=== PATIENT | male | born 1995 | race Caucasian/White ===

== ENCOUNTER 2019-08-15 16:06 | Emergency (ER) | payer SELFPAY ==
[~2019-08-15] VITALS: Ht 167 cm; Wt 71.7 kg
[~2019-08-15 16:06] MED LIST: Flexeril PO
[2019-08-15 16:45] VITALS: BP 126/81
[2019-08-15] MEDS ORDERED: PERM60CR4 TP (17:04)
--- NOTE | 2019-08-15 17:04 | ED Integumentary General ---
General Stated Complaint: RASH Source: patient Exam Limitations: no limitations History of Present Illness Date Seen by Provider: Aug 15, 2019 Time Seen by Provider: 17:02 Initial Comments 24 year old male for rash on his left outer thigh for the past week. Reports that mother was treated for scabies recently. His sister is her for similar rash. Allergies and Home Medications Allergies Coded Allergies: Penicillins (Unverified Allergy, Severe, ANAPHYLAXIS, 04/10/10) Home Medications Permethrin 60 Gm Cream..g., 60 GM TP ONCE Prescribed by: FELI YAO on 08/15/19 1704 [Flexeril] , 5 MG PO BID PRN for PAIN Prescribed by: BK URIAS on 02/08/15 1444 Patient Home Medication List Home Medication List Reviewed: Yes Review of Systems Review of Systems Constitutional: see HPI; No chills, No fever Skin: see HPI, pruritus, rash Past [id number]-Oweuvc-Eaxbeq Hx Past Med/Social Hx: Reviewed Nursing Past Med/Soc Hx Patient Social History Recent Foreign Travel: No Contact w/Someone Who Travel: No Immunizations Up To Date Tetanus Booster (TDap): Unknown Seasonal Allergies Seasonal Allergies: No Past Medical History Reproductive Disorders: No Sexually Transmitted Disease: No HIV/AIDS: No Family Medical History Reviewed Nursing Family Hx No Pertinent Family Hx Physical Exam Vital Signs Vital Signs - First Documented 08/15/19 16:45 Temp 36.9 Pulse 79 Resp 18 B/P (MAP) 126/81 (96) Pulse Ox 97 O2 Delivery Room Air Capillary Refill : General Appearance: WD/WN, no apparent distress Cardiovascular: normal peripheral pulses, regular rate, rhythm, no edema, no gallop, no JVD, no murmur Respiratory: chest non-tender, lungs clear, normal breath sounds, no respiratory distress, no accessory muscle use Neurologic/Psychiatric: alert, normal mood/affect, oriented x 3 Skin: normal color, warm/dry Skin Problem Location: lower extremities (outer thigh.) Skin Problem Character: other (linear tunnling that is consistant with scabies rash. ) Progress/Results/Core Measures Results/Orders Vital Signs/I&O 08/15/19 16:45 Temp 36.9 Pulse 79 Resp 18 B/P (MAP) 126/81 (96) Pulse Ox 97 O2 Delivery Room Air Departure Impression Primary Impression: Scabies Disposition: 01 HOME, SELF-CARE Condition: Stable/Unchanged Departure-Patient Inst. Decision time for Depature: 17:03 Referrals: [facility] (PCP/Family) Primary Care Physician Patient Instructions: Scabies Add. Discharge Instructions: Use medication as directed. Follow-up with primary care provider within 1 week for recheck. Return back to the emergency room for worsening symptoms or concerns as needed. Scripts Permethrin (Permethrin) 60 Gm Cream..g. 60 GM TP ONCE for 1 Day, #1 TUBE Prov: FELI YAO 08/15/19 FELI YAO Aug 15, 2019 17:04
--- OUTSIDE RECORDS SUMMARY | 2019-08-15 18:01 | XMS REPORT | Continuity of Care Document ---
Author Author [facility] Organization [facility] Address Unknown Phone Unavailable Care Team Providers Care Infant Nanny Name Role Phone TAYO ALMEIDA DO PP Insurance Providers Payer Name Policy Number [facility]scriber [facility] [id number] Dioni Dorantes 01 Self / Same As Patient Advance Directives Directive Response Recor ded Date Advance Directives N 11:46am Organ Donor N 01/12/13 1 1:46am Problems No Known Problems or Medical conditions. Social History History Response Recorde d Date/Time Alcohol Use Denies Use 1 11:46am Recreational Drug Use N 01/12/13 11:46am Recent Foreign Travel N 01/12/13 11:46am Sexually Transmitted Disease N 11/29/12 11:55pm HIV/AIDS N 11/29/12 11:5 5pm Allergies, Adverse Reactions, Alerts Allergen Type Severity Reaction Last Updated Penicillins Allergy Betina re ANAPHYLAXIS 04/10/10 Medications Medication Dose Units Route Sig Qty Days No Active Prescriptions or Reported Medications Response Recorded Date/Time Status not known Unknown Results No Known Relevant Diagnostic Tests, Laboratory Data and/or Discharge Summary. Encounters Encounter Location Date/ Time Departed Emergency Room [facility] [place] 01/12/13 11:36am
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
--- OUTSIDE RECORDS SUMMARY | 2019-08-15 18:01 | XMS REPORT ---
Author Author Arie Pena Organization [facility] Address [address] [place] [address] Care Team Providers Care Wire Machine Operator Name Role Phone PARMINDER Pena Unavailable PROBLEMS Type Condition ICD9-CM Code CBY29-TD Code Onset Dates Condition S tatus SNOMED Code Problem Primary insomnia F51.01 Active 397 2004 Problem Panic disorder [episodic paroxysmal anxiety] F41.0 Active [id number] ALLERGIES No Information ENCOUNTERS Encounter Location Date Diagnosis [place] [address] [address] Mar, Primary insomnia F51.01 [place] [address] [address] Feb, Panic disorder [episodic par oxysmal anxiety] F41.0 and Primary insomnia F51.01 [place] [address] [address] Dec, Panic disorder [episodic par oxysmal anxiety] F41.0 and Frequent headaches R51 [place] [address] [place] [id number] [address] [place] [address] Sep, Frequent headaches R51 [place] [address] [place] [id number] [address] [place] [address] Jun, At risk for cardiac complica tion Z91.89 [place] [address] [place] [id number] [address] [place] [address] Jun, Frequent headaches R51 ; Magalys ananda insomnia F51.01 and Status post cardiac surgery Z98.890 [place] [address] [place] [id number] [address] [place] [address] Jun, Frequent headaches R51 ; Maglays ananda insomnia F51.01 and Status post cardiac surgery Z98.890 [facility] [address] [facility] [id number] [address] [place] [address] Jun, Sinus pressure J34.89 ; Coug h R05 and Post-nasal discharge R09.82 [facility] [address] [facility] [id number] [address] [place] [phone] July, [facility] [address] [place] [id number] [address] [place] [address] Dec, [facility] [address] [facility] [id number] [address] [place] [id number] Nov, Dental examination V72.2 [facility] [address] [place] [address] Nov, Routine child health exam V2 0.2 ; GARDASIL (HPV) DX V04.89 ; HEP A (PED/ADOL 2-DOSE) DX V05.3 ; MENINGOCOCCAL DX V03.89 ; Dietary counseling and surveillance V65.3 ; Exercise counseling V65.41 ; Failed vision screen 796.4 and Right-sided chest wall pain 786.52 [facility] [address] [place] [id number] [address] [place] [address] Jun, [facility] [address] [place] [id number] [address] [place] [address] Jun, [facility] [address] [place] [id number] [address] [place] [address] Mar, [facility] [address] [place] [id number] [address] [place] [address] Mar, [facility] [address] [place] [id number] [address] [place] [phone] Feb, [facility] [address] [place] [id number] [address] [place] [address] Feb, [facility] [address] [place] [id number] [address] [place] [address] Feb, [facility] [address] [id number] [address] [place] [phone] Feb, [facility] [address] [id number] [address] [place] [phone] Feb, [facility] [address] [id number] [address] [place] [phone] Feb, [facility] [address] [id number] [address] [place] [phone] Jan, [facility] [address] [id number] [address] [place] [phone] Jan, [facility] [address] [id number] [address] [place] [phone] Jan, [facility] [address] [id number] [address] [place] [phone] Jan, [facility] [address] [id number] [address] [place] [phone] Dec, [facility] [address] [id number] [address] [place] [address] Dec, IMMUNIZATIONS No Known Immunizations SOCIAL HISTORY Never Assessed REASON FOR VISIT PLAN OF CARE VITAL SIGNS MEDICATIONS Unknown Medications RESULTS No Results PROCEDURES No Known procedures INSTRUCTIONS MEDICATIONS ADMINISTERED No Known Medications MEDICAL (GENERAL) HISTORY Type Description Date Surgical History holes in heart repaired (4) 1999 Hospitalization History stayed in hosp due to surgery 1998-
--- OUTSIDE RECORDS SUMMARY | 2019-08-15 18:01 | XMS REPORT ---
Author Author Arie REDDY Organization [facility] Address [address] [place] [address] Care Team Providers Care Sawmill Hand Name Role Phone BARRY LETITIA Unavailable PROBLEMS Type Condition ICD9-CM Code QUN97-LF Code Onset Dates Condition S tatus SNOMED Code Problem Primary insomnia F51.01 Active 397 2004 Problem Panic disorder [episodic paroxysmal anxiety] F41.0 Active [id number] ALLERGIES No Information ENCOUNTERS Encounter Location Date Diagnosis [place] [address] [address] Mar, Primary insomnia F51.01 [place] [address] [address] Feb, Panic disorder [episodic paroxysmal anxi ety] F41.0 and Primary insomnia F51.01 [place] [address] [address] Dec, Panic disorder [episodic paroxysmal anxi ety] F41.0 and Frequent headaches R51 [place] [address] [address] Sep, Frequent headaches R51 [place] [address] [address] Jun, At risk for cardiac complication Z91.89 [place] [address] [address] Jun, Frequent headaches R51 ; Primary insomni a F51.01 and Status post cardiac surgery Z98.890 [place] [address] [address] Jun, Frequent headaches R51 ; Primary insomni a F51.01 and Status post cardiac surgery Z98.890 [facility] [address] [facility] [id number] [address] [place] [address] Jun, Sinus pressure J34.89 ; Coug h R05 and Post-nasal discharge R09.82 [facility] [address] [place] [id number] [place] [address] July, [facility] [address] [place] [id number] [place] [address] Dec, [facility] [address] [id number] [place] [id number] Nov, Dental examination V72.2 [facility] [address] [place] [id number] [place] [address] Nov, Routine child health exam V20.2 ; GARDAS IL (HPV) DX V04.89 ; HEP A (PED/ADOL 2-DOSE) DX V05.3 ; MENINGOCOCCAL DX V03.89 ; Dietary counseling and surveillance V65.3 ; Exercise counseling V65.41 ; Failed vision screen 796.4 and Right-sided chest wall pain 786.52 [place] [address] [place] [id number] [place] [address] 14 Jun, 2014 [facility] [address] [address] Jun, [facility] [address] [address] 08 Mar, 2013 [facility] [address] [address] Mar, [facility] [address] [address] Feb, [facility] [address] [address] Feb, [facility] [address] [address] Feb, [facility] [address] [address] Feb, [facility] [address] [place] [id number] [place] [address] Feb, [facility] [address] [id number] [place] [address] Feb, [facility] [address] [place] [id number] [place] [address] Jan, [facility] [address] [place] [id number] [place] [address] Jan, [facility] [address] [place] [id number] [place] [address] Jan, [facility] [address] [place] [id number] [place] [address] Jan, [facility] [address] [id number] [place] [address] Dec, [facility] [address] [id number] [place] [address] Dec, IMMUNIZATIONS No Known Immunizations SOCIAL HISTORY Never Assessed REASON FOR VISIT PLAN OF CARE VITAL SIGNS MEDICATIONS Unknown Medications RESULTS No Results PROCEDURES No Known procedures INSTRUCTIONS MEDICATIONS ADMINISTERED No Known Medications MEDICAL (GENERAL) HISTORY Type Description Date Surgical History holes in heart repaired (4) 1999 Hospitalization History stayed in hosp due to surgery 1998-
--- OUTSIDE RECORDS SUMMARY | 2019-08-15 18:01 | XMS REPORT ---
Author Author Rose Lopezew Doctor Organization [facility] Address Unknown Phone Unavailable Care Team Providers Care Maintenance Services Dispatcher Name Role Phone Migration, Doctor Unavailable Unavailable PROBLEMS Type Condition ICD9-CM Code CAS51-FP Code Onset Dates Condition S tatus SNOMED Code Problem Attention deficit disorder o f childhood without mention of hyperactivity 314.00 Active 76499898 Problem Unspecified episodic mood disorder 296.90 Active 137805534 Problem Primary insomnia F51.01 Active 397 2004 Problem Depressive disorder, not elsewhere classified 311 Active 76932883 Problem Social phobia 300.23 Active 432292 02 Problem Agoraphobia with panic disorder 300.21 Active 25721078 Problem Panic disorder without agoraphobia 300.01 Active [id number] ALLERGIES No Information ENCOUNTERS Encounter Location Date Diagnosis [facility] [address] [address] Jun, At risk for cardiac complica tion Z91.89 [facility] [address] [address] Jun, Frequent headaches R51 ; Magalys ananda insomnia F51.01 and Status post cardiac surgery Z98.890 [facility] [address] [place] [id number] [address] [place] [address] Jun, Frequent headaches R51 ; Magalys ananda insomnia F51.01 and Status post cardiac surgery Z98.890 [facility] [address] [facility] [id number] [address] [place] [address] Jun, Sinus pressure J34.89 ; Coug h R05 and Post-nasal discharge R09.82 [facility] [address] [place] [id number] [address] [place] [address] July, [facility] [address] [place] [id number] [address] [place] [address] Dec, [facility] [address] [id number] [address] [place] [id number] 29 Nov, 2014 Dental examination V72.2 [facility] [address] [id number] [address] [place] [address] Nov, Routine child health exam V2 0.2 ; GARDASIL (HPV) DX V04.89 ; HEP A (PED/ADOL 2-DOSE) DX V05.3 ; MENINGOCOCCAL DX V03.89 ; Dietary counseling and surveillance V65.3 ; Exercise counseling V65.41 ; Failed vision screen 796.4 and Right-sided chest wall pain 786.52 [facility] [address] [id number] [address] [place] [address] Jun, [facility] [address] [id number] [address] [place] [address] Jun, [facility] [address] [id number] [address] [place] [address] Mar, [facility] [address] [id number] [address] [place] [address] Mar, [facility] [address] [id number] [address] [place] [address] Feb, [facility] [address] [id number] [address] [place] [address] Feb, [facility] [address] [id number] [address] [place] [address] Feb, [facility] [address] [id number] [address] [place] [address] Feb, [facility] [address] [id number] [address] [place] [address] Feb, [facility] [address] [id number] [address] [place] [address] Feb, [facility] [address] [id number] [address] [place] [address] Jan, [facility] [address] [facility] [id number] [address] [place] [address] Jan, [facility] [address] [facility] [id number] [address] [place] [address] Jan, [facility] [address] [facility] [id number] [address] [place] [address] Jan, [facility] [address] [facility] [id number] [address] [place] [address] Dec, [facility] [address] [facility] [id number] [address] [place] [address] Dec, IMMUNIZATIONS No Known Immunizations SOCIAL HISTORY Never Assessed REASON FOR VISIT [facility] PLAN OF CARE VITAL SIGNS MEDICATIONS Unknown Medications RESULTS No Results PROCEDURES No Known procedures INSTRUCTIONS MEDICATIONS ADMINISTERED No Known Medications MEDICAL (GENERAL) HISTORY Type Description Date Surgical History holes in heart repaired (4) 1999 Hospitalization History stayed in hosp due to surgery 1998- 000
--- OUTSIDE RECORDS SUMMARY | 2019-08-15 18:01 | XMS REPORT ---
Author Author Arie REDDY Organization [facility] Address [address] [place] [address] Care Team Providers Care Lipcoat Sprayer Name Role Phone BARRY LETITIA Unavailable PROBLEMS Type Condition ICD9-CM Code UPV79-WJ Code Onset Dates Condition S tatus SNOMED Code Problem Primary insomnia F51.01 Active 397 2004 Problem Panic disorder [episodic paroxysmal anxiety] F41.0 Active [id number] ALLERGIES No Information ENCOUNTERS Encounter Location Date Diagnosis [facility] [address] [address] Mar, Primary insomnia F51.01 [place] [address] [address] Feb, Panic disorder [episodic par oxysmal anxiety] F41.0 and Primary insomnia F51.01 [facility] [address] [address] Dec, Panic disorder [episodic par oxysmal anxiety] F41.0 and Frequent headaches R51 [place] [address] [place] [id number] [address] [place] [address] Sep, Frequent headaches R51 [place] [address] [address] Jun, At risk for cardiac complica tion Z91.89 [place] [address] [address] Jun, Frequent headaches R51 ; Magalys ananda insomnia F51.01 and Status post cardiac surgery Z98.890 [place] [address] [place] [id number] [address] [place] [address] Jun, Frequent headaches R51 ; Magalys ananda insomnia F51.01 and Status post cardiac surgery Z98.890 [facility] [address] [facility] [id number] [address] [place] [address] Jun, Sinus pressure J34.89 ; Coug h R05 and Post-nasal discharge R09.82 [facility] [address] [facility] [id number] [address] [place] [address] July, [facility] [address] [facility] [id number] [address] [place] [address] Dec, [facility] [address] [id number] [address] [place] [id number] Nov, Dental examination V72.2 [facility] [address] [place] [id number] [address] [place] [address] Nov, Routine child health exam V2 0.2 ; GARDASIL (HPV) DX V04.89 ; HEP A (PED/ADOL 2-DOSE) DX V05.3 ; MENINGOCOCCAL DX V03.89 ; Dietary counseling and surveillance V65.3 ; Exercise counseling V65.41 ; Failed vision screen 796.4 and Right-sided chest wall pain 786.52 [facility] [address] [place] [id number] [address] [place] [address] Jun, [facility] [address] [facility] [id number] [address] [place] [address] Jun, [facility] [address] [place] [id number] [address] [place] [address] Mar, [facility] [address] [facility] [id number] [address] [place] [address] Mar, [facility] [address] [place] [id number] [address] [place] [address] Feb, [facility] [address] [facility] [id number] [address] [place] [address] Feb, [facility] [address] [place] [id number] [address] [place] [address] Feb, [facility] [address] [id number] [address] [place] [address] Feb, [facility] [address] [id number] [address] [place] [address] Feb, [facility] [address] [id number] [address] [place] [address] Feb, [facility] [address] [id number] [address] [place] [address] Jan, [facility] [address] [id number] [address] [place] [address] Jan, [facility] [address] [id number] [address] [place] [address] Jan, [facility] [address] [id number] [address] [place] [address] Jan, [facility] [address] [id number] [address] [place] [address] Dec, [facility] [address] [id number] [address] [place] [address] Dec, IMMUNIZATIONS No Known Immunizations SOCIAL HISTORY Never Assessed REASON FOR VISIT PLAN OF CARE VITAL SIGNS Height 67.5 in 2013-02-15 Weight 131.25 lbs 2013-02-15 Temperature 98.8 degrees Fahrenheit 2013-02-15 Heart Rate 88 bpm 2013-02-15 Respiratory Rate 24 2013-02-15 Blood pressure systolic 118 mmHg 2013-02-15 Blood pressure diastolic 92 mmHg 2013-02-15 MEDICATIONS Unknown Medications RESULTS No Results PROCEDURES No Known procedures INSTRUCTIONS MEDICATIONS ADMINISTERED No Known Medications MEDICAL (GENERAL) HISTORY Type Description Date Surgical History holes in heart repaired (4) 1999 Hospitalization History stayed in hosp due to surgery 1998-
--- OUTSIDE RECORDS SUMMARY | 2019-08-15 18:01 | XMS REPORT ---
Author Author Arie REDDY Organization [facility] Address [address] [place] [address] Care Team Providers Care Bronzer Name Role Phone BARRY LETITIA Unavailable PROBLEMS Type Condition ICD9-CM Code PJK98-UG Code Onset Dates Condition S tatus SNOMED Code Problem Primary insomnia F51.01 Active 397 2004 Problem Panic disorder [episodic paroxysmal anxiety] F41.0 Active [id number] ALLERGIES No Information ENCOUNTERS Encounter Location Date Diagnosis [facility] [address] [address] Mar, Primary insomnia F51.01 [place] [address] [address] Feb, Panic disorder [episodic par oxysmal anxiety] F41.0 and Primary insomnia F51.01 [facility] [address] [address] Dec, Panic disorder [episodic par oxysmal anxiety] F41.0 and Frequent headaches R51 [place] [address] [place] [id number] [address] [place] [address] Sep, Frequent headaches R51 [place] [address] [address] Jun, At risk for cardiac complica tion Z91.89 [place] [address] [address] Jun, Frequent headaches R51 ; Magalys ananda insomnia F51.01 and Status post cardiac surgery Z98.890 [place] [address] [place] [id number] [address] [place] [address] Jun, Frequent headaches R51 ; Magalys ananda insomnia F51.01 and Status post cardiac surgery Z98.890 [facility] [address] [facility] [id number] [address] [place] [address] Jun, Sinus pressure J34.89 ; Coug h R05 and Post-nasal discharge R09.82 [facility] [address] [facility] [id number] [address] [place] [phone] July, [facility] [address] [facility] [id number] [address] [place] [address] Dec, [facility] [address] [id number] [address] [place] [id number] Nov, Dental examination V72.2 [facility] [address] [place] [id number] [address] [place] [address] Nov, Routine child health exam V2 0.2 ; GARDASIL (HPV) DX V04.89 ; HEP A (PED/ADOL 2-DOSE) DX V05.3 ; MENINGOCOCCAL DX V03.89 ; Dietary counseling and surveillance V65.3 ; Exercise counseling V65.41 ; Failed vision screen 796.4 and Right-sided chest wall pain 786.52 [facility] [address] [place] [id number] [address] [place] [address] Jun, [facility] [address] [facility] [id number] [address] [place] [address] Jun, [facility] [address] [place] [id number] [address] [place] [phone] Mar, [facility] [address] [facility] [id number] [address] [place] [address] Mar, [facility] [address] [place] [id number] [address] [place] [phone] Feb, [facility] [address] [facility] [id number] [address] [place] [phone] Feb, [facility] [address] [place] [id number] [address] [place] [phone] Feb, [facility] [address] [id number] [address] [place] [phone] Feb, [facility] [address] [id number] [address] [place] [phone] Feb, [facility] [address] [id number] [address] [place] [phone] Feb, [facility] [address] [id number] [address] [place] [phone] Jan, [facility] [address] [id number] [address] [place] [phone] Jan, [facility] [address] [id number] [address] [place] [phone] Jan, [facility] [address] [id number] [address] [place] [phone] Jan, [facility] [address] [id number] [address] [place] [phone] Dec, [facility] [address] [id number] [address] [place] [phone] Dec, IMMUNIZATIONS No Known Immunizations SOCIAL HISTORY Never Assessed REASON FOR VISIT PLAN OF CARE VITAL SIGNS Height 67.25 in 2013-02-01 Weight 132.12 lbs 2013-02-01 Temperature 98.4 degrees Fahrenheit 2013-02-01 Heart Rate 80 bpm 2013-02-01 Respiratory Rate 24 2013-02-01 Blood pressure systolic 126 mmHg 2013-02-01 Blood pressure diastolic 94 mmHg 2013-02-01 MEDICATIONS Unknown Medications RESULTS No Results PROCEDURES No Known procedures INSTRUCTIONS MEDICATIONS ADMINISTERED No Known Medications MEDICAL (GENERAL) HISTORY Type Description Date Surgical History holes in heart repaired (4) 1999 Hospitalization History stayed in hosp due to surgery 1998-
--- OUTSIDE RECORDS SUMMARY | 2019-08-15 18:01 | XMS REPORT | Continuity of Care Document ---
Author Author [facility] Organization [facility] Address Unknown Phone Unavailable Care Team Providers Care Dentist Private Practice Name Role Phone TAYO ALMEIDA DO PP Insurance Providers Payer Name Policy Number Subscriber Name Relationship [facility] [id number] Dioni Sher 01 Self / Same As Patient Advance Directives Directive Response Recor ded Date Advance Directives N 1:57am Organ Donor N 09/29/12 1 :57am Problems No Known Problems or Medical conditions. Social History History Response Recorde d Date/Time Alcohol Use Denies Use 0 09/29/12 1:57am Recreational Drug Use N 09/29/12 1:57am Recent Foreign Travel N 09/29/12 1:57am Sexually Transmitted Disease N 09/29/12 1:57am HIV/AIDS N 09/29/12 1:57 am Allergies, Adverse Reactions, Alerts Allergen Type Severity Reaction Last Updated Penicillins Allergy Betina re ANAPHYLAXIS 04/10/10 Medications No known medications Response Recorded Date/Time Status not known Unknown Results No Known Relevant Diagnostic Tests, Laboratory Data and/or Discharge Summary. Encounters Encounter Location Date/ Time Departed Emergency Room [facility] 09/29/12 1:56am
--- OUTSIDE RECORDS SUMMARY | 2019-08-15 18:01 | XMS REPORT ---
Author Author [place] Organization [facility] Address [address] [place] [address] Care Team Providers Care Shingle Shearing Machine Operator Name Role Phone OCHOA STOKESBANDARERICKSON Unavailable PROBLEMS Type Condition ICD9-CM Code [id number] Code Onset Dates Condition S tatus SNOMED Code Problem Unspecified episodic mood disorder 296.90 Active 715161302 Problem Panic disorder without agoraphobia 300.01 Active 00081099 Problem Depressive disorder, not elsewhere classified 311 Active 26911193 Problem Attention deficit disorder o f childhood without mention of hyperactivity 314.00 Active 37850129 Problem Agoraphobia with panic disorder 300.21 Active 55178253 Problem Social phobia 300.23 Active 943396 02 ALLERGIES Substance Reaction Event Type Date Status Penicillins Unknown Non Drug Allergy Jun, Active ENCOUNTERS Encounter Location Date Diagnosis [facility] [address] [facility] [id number] [address] [place] [phone] Jun, Sinus pressure J34.89 ; Coug h R05 and Post-nasal discharge R09.82 [facility] [address] [facility] [id number] [address] [place] [phone] July, [facility] [address] [id number] [address] [place] [phone] Dec, [facility] [address] [facility] [id number] [address] [place] [phone] Nov, Dental examination V72.2 [facility] [address] [id number] [address] [place] [phone] Nov, Routine child health exam V2 0.2 ; GARDASIL (HPV) DX V04.89 ; HEP A (PED/ADOL 2-DOSE) DX V05.3 ; MENINGOCOCCAL DX V03.89 ; Dietary counseling and surveillance V65.3 ; Exercise counseling V65.41 ; Failed vision screen 796.4 and Right-sided chest wall pain 786.52 [facility] [address] [id number] [address] [place] [phone] 14 Jun, 2014 [facility] [address] [id number] [address] [place] [phone] 13 Jun, 2014 [facility] [address] [id number] [address] [place] [phone] Mar, [facility] [address] [id number] [address] [place] [phone] Mar, [facility] [address] [id number] [address] [place] [phone] Feb, [facility] [address] [id number] [address] [place] [phone] Feb, [facility] [address] [id number] [address] [place] [phone] Feb, [facility] [address] [id number] [address] [place] [phone] Feb, [facility] [address] [id number] [address] [place] [phone] Feb, [facility] [address] [id number] [address] [place] [phone] Feb, [facility] [address] [id number] [address] [place] [phone] Jan, [facility] [address] [id number] [address] [place] [phone] Jan, [facility] [address] [id number] [address] [place] [phone] Jan, [facility] [address] [id number] [address] [place] [phone] Jan, [facility] [address] [id number] [address] [place] [phone] Dec, [facility] [address] [facility] [id number] [address] [place] [address] Dec, IMMUNIZATIONS Vaccine Route Administration Date Status KENALOG 40 MG/ML (PER 10 MG) IM Intramuscular July 09, 2017 Ad ministered SOCIAL HISTORY Never Assessed REASON FOR VISIT stuffy nose with sinus pressure, drainage down the back of his throat. been sick for a week. [email or web address] PLAN OF CARE Activity Details Follow Up prn Reason: VITAL SIGNS Height 67.5 in 2017-07-09 Weight 154.0 lbs 2017-07-09 Temperature 98.2 degrees Fahrenheit 2017-07-09 Heart Rate 84 bpm 2017-07-09 Respiratory Rate 20 2017-07-09 BMI 23.76 kg/m2 2017-07-09 Blood pressure systolic 112 mmHg 2017-07-09 Blood pressure diastolic 74 mmHg 2017-07-09 MEDICATIONS Medication Instructions Dosage Frequency Start Date End Date Duration S tatus Zithromax Z-Gildardo 250 MG Orally Once a day 2 tablets on the first day, then 1 tablet daily for 4 days 24h Jun, July, 5 day(s) Acti ve Flonase 50 MCG/ACT Nasally Once a day 1 spray in each nostril 24h Jun, 30 day(s) Active RESULTS No Results PROCEDURES Procedure Date Ordered Result Body Site KENALOG 40 MG/ML (PER 10 MG) July 09, 2017 THER/PROPH/DIAG INJ, SC/IM July 09, 2017 INSTRUCTIONS MEDICATIONS ADMINISTERED No Known Medications MEDICAL (GENERAL) HISTORY Type Description Date Surgical History holes in heart repaired (4) 1999 Hospitalization History stayed in hosp due to surgery 1998-
--- OUTSIDE RECORDS SUMMARY | 2019-08-15 18:01 | XMS REPORT | Continuity of Care Document ---
Author Author [facility] Organization [facility] Address Unknown Phone Unavailable Care Team Providers Care Pipeline Controller Name Role Phone TAYO ALMEIDA PP Insurance Providers Payer Name Policy Number Subscriber Name Relationship [facility] [id number] Dioni Sher 01 Self / Same As Patient Advance Directives Directive Response Recor ded Date Advance Directives N 11:55pm Organ Donor N 11/29/12 1 1:55pm Problems No Known Problems or Medical conditions. [...] Encounter Location Date/ Time Departed Emergency Room [facility] 11/29/12 11:48pm
--- OUTSIDE RECORDS SUMMARY | 2019-08-15 18:01 | XMS REPORT ---
Author Author Arie Lopez Doctor Organization [facility] Address Unknown Phone Unavailable Care Team Providers Care Information Security Name Role Phone Migration, Doctor Unavailable Unavailable PROBLEMS Type Condition ICD9-CM Code [id number] Code Onset Dates Condition S tatus SNOMED Code Problem Attention deficit disorder o f childhood without mention of hyperactivity 314.00 Active 54573514 Problem Unspecified episodic mood disorder 296.90 Active 646544249 Problem Primary insomnia F51.01 Active 397 2004 Problem Depressive disorder, not elsewhere classified 311 Active 71897251 Problem Social phobia 300.23 Active 737099 02 Problem Agoraphobia with panic disorder 300.21 Active 28676613 Problem Panic disorder without agoraphobia 300.01 Active 03252684 ALLERGIES Substance Reaction Event Type Date Status Penicillins Unknown Non Drug Allergy Jun, Active ENCOUNTERS Encounter Location Date Diagnosis [facility] [address] [id number] [address] [place] [phone] Jun, At risk for cardiac complica tion Z91.89 [facility] [address] [id number] [address] [place] [phone] Jun, Frequent headaches R51 ; Magalys ananda insomnia F51.01 and Status post cardiac surgery Z98.890 [facility] [address] [id number] [address] [place] [phone] Jun, Frequent headaches R51 ; Magalys ananda insomnia F51.01 and Status post cardiac surgery Z98.[address] [facility] [address] [id number] [address] [place] [phone] Jun, Sinus pressure J34.89 ; Coug h R05 and Post-nasal discharge R09.82 [facility] [address] [id number] [address] [place] [phone] July, [facility] [address] [id number] [address] [place] [phone] Dec, [facility] [address] [id number] [address] [place] [phone] Nov, Dental examination V72.2 [facility] [address] [id number] [address] [place] [phone] Nov, Routine child health exam V2 0.2 ; GARDASIL (HPV) DX V04.89 ; HEP A (PED/ADOL 2-DOSE) DX V05.3 ; MENINGOCOCCAL DX V03.89 ; Dietary counseling and surveillance V65.3 ; Exercise counseling V65.41 ; Failed vision screen 796.4 and Right-sided chest wall pain 786.52 [facility] [address] [id number] [address] [place] [phone] Jun, [facility] [address] [id number] [address] [place] [phone] Jun, [facility] [address] [id number] [address] [place] [phone] Mar, [facility] [address] [id number] [address] [place] [phone] Mar, [facility] [address] [id number] [address] [place] [phone] Feb, [facility] [address] [id number] [address] [place] [phone] Feb, [facility] [address] [id number] [address] [place] [phone] Feb, [facility] [address] [id number] [address] [place] [phone] Feb, [facility] [address] [id number] [address] [place] [phone] Feb, [facility] [address] [id number] [address] [place] [phone] Feb, [facility] [address] [id number] [address] [place] [phone] Jan, [facility] [address] [facility] [id number] [address] [place] [phone] Jan, [facility] [address] [facility] [id number] [address] [place] [phone] Jan, [facility] [address] [facility] [id number] [address] [place] [phone] Jan, [facility] [address] [facility] [id number] [address] [place] [phone] Dec, [facility] [address] [facility] [id number] [address] [place] [phone] Dec, IMMUNIZATIONS No Known Immunizations SOCIAL HISTORY Never Assessed REASON FOR VISIT [facility] CARE VITAL SIGNS MEDICATIONS Medication Instructions Dosage Frequency Start Date End Date Duration S tatus Depakote ER 500 mg 1 tablet by Oral route 1 time per d ay TAKE AT BEDTIME Feb, Active Vistaril 25 mg 1 capsule by Oral route 1 time per day PRN for c/o anxiety Feb, Active RESULTS No Results PROCEDURES No Known procedures INSTRUCTIONS MEDICATIONS ADMINISTERED No Known Medications MEDICAL (GENERAL) HISTORY Type Description Date Surgical History holes in heart repaired (4) 1999 Hospitalization History stayed in hosp due to surgery 1998-
--- OUTSIDE RECORDS SUMMARY | 2019-08-15 18:02 | XMS REPORT | Continuity of Care Document ---
Author Organization Unknown Address Unknown Phone Unavailable Allergies Active Description Code Type Severity Reaction Onset Reported/Identified Relationship to Patient Clinical Status Yes Penicillins [id number] Drug Aller gy Severe ANAPHYLAXIS 04/10/2010 Yes Penicillins Drug Allergy N/A N/A 02/01/2013 Medications There is no data. Problems Date Dx Coded Attending Type Code Diagnosis Diagnosed By 10/24/2008 AROLDO CHAPARRO LCPC V03.89 MENINGOCOCCAL, OTHER SPECIFIED SINGLE BACTERIAL DISEA SE 10/24/2008 AROLDO CHAPARRO LCPC V0 6.5 DT, TETANUS-DIPHTHERIA [Td] ,TDAP 10/24/2008 FRANDY MEYER MD V03.8 9 MENINGOCOCCAL, OTHER SPECIFIED SINGLE BACTERIAL DISEASE 10/24/2008 FRANDY MEYER MD V06.5 DT, TETANUS-DIPHTHERIA [Td] ,TDAP 10/24/2008 FRANDY MEYER MD V03.8 9 MENINGOCOCCAL, OTHER SPECIFIED SINGLE BACTERIAL DISEASE 10/24/2008 FRANDY MEYER MD V06.5 DT, TETANUS-DIPHTHERIA [Td] ,TDAP 10/24/2008 LETITIA REDDY APRN V03.89 MENINGOCOCCAL, OTHER SPECIFIED SINGLE BACTERIAL DISEA SE 10/24/2008 LETITIA REDDY APRN V06.5 DT, TETANUS-DIPHTHERIA [Td] ,TDAP 04/10/2010 Ot 880.03 04/10/2010 Ot E000.8 04/10/2010 Ot E019.9 04/10/2010 Ot E849.0 04/10/2010 Ot E906.0 09/29/2012 MARILYN ARCE MD Ot 723.1 CERVICALGIA 09/29/2012 MARILYN ARCE MD Ot 786.50 CHEST PAIN NOS 09/29/2012 MARILYN ARCE MD Ot 786.52 PAINFUL RESPIRATION 11/30/2012 MATT DAVE MD Ot 300. 00 ANXIETY STATE NOS 01/02/2013 AROLDO CHAPARRO LCPC 300.01 AN PANIC DIS W/O AGORA 01/02/2013 KRYSTA CRENSHAWPC, AROLDO B 31 1 DEPRESSIVE DISORDER NOS 01/02/2013 FRANDY MEYER MD 300.0 1 AN PANIC DIS W/O AGORA 01/02/2013 FRANDY MEYER MD 311 DEPRESSIVE DISORDER NOS 01/02/2013 FRANDY MEYER MD 300.0 1 AN PANIC DIS W/O AGORA 01/02/2013 FRANDY MEYER MD 311 DEPRESSIVE DISORDER NOS 01/02/2013 LETITIA REDDY APRN 300.01 AN PANIC DIS W/O AGORA 01/02/2013 LETITIA REDDY APRN 311 DEPRESSIVE DISORDER NOS 01/12/2013 BK URIAS APRN Ot 462 ACUTE PHARYNGITIS 02/01/2013 FRANDY MEYER MD 296.9 0 MOOD DISORDER NOS 02/01/2013 FRANDY MEYER MD 300.2 1 AN PANIC DIS W AGORA 02/01/2013 FRANDY MEYER MD 300.2 3 AN SOCIAL PHOBIA 02/01/2013 FRANDY MEYER MD 314.0 0 ADHD INATTENTIVE 02/01/2013 FRANDY MEYER MD 296.9 0 MOOD DISORDER NOS 02/01/2013 FRANDY MEYER MD 300.2 1 AN PANIC DIS W AGORA 02/01/2013 FRANDY MEYER MD 300.2 3 AN SOCIAL PHOBIA 02/01/2013 FRANDY MEYER MD 314.0 0 ADHD INATTENTIVE 02/01/2013 LETITIA REDDY APRN 296.90 MOOD DISORDER NOS 02/01/2013 LETITIA REDDY APRN 300.21 AN PANIC DIS W AGORA 02/01/2013 LETITIA REDDY APRN 300.23 AN SOCIAL PHOBIA 02/01/2013 LETITIA REDDY APRN 314.00 ADHD INATTENTIVE 09/02/2013 BK URIAS APRN Ot 840 .9 SPRAIN SHOULDER/ARM NOS 09/02/2013 BK URIAS APRN Ot E000.8 OTHER EXTERNAL CAUSE STATUS 09/02/2013 BK URIAS APRN Ot E019.9 OTHER ACTIVITY INVOLVING ANIMAL CARE 09/02/2013 BK URIAS APRN Ot E927.0 OVEREXERTION FROM SUDDEN STRENUOUS MOVEM 02/08/2015 Ot 747.10 02/08/2015 BK URIAS APRN Ot S13.9XXA SPRAIN OF JOINTS AND LIGAMENTS OF UNSP P 02/08/2015 BK URIAS APRN Ot W22.09XA STRIKING AGAINST OTHER STATIONARY OBJECT 02/08/2015 BK URIAS APRN Ot Y92.017 GARDEN OR YARD IN SINGLE-FAMILY (PRIVATE 02/08/2015 BK URIAS APRN Ot Y99 .8 OTHER EXTERNAL CAUSE STATUS 07/30/2017 BK URIAS APRN Ot R07.81 PLEURODYNIA 07/30/2017 BK URIAS APRN Ot Z88 .0 ALLERGY STATUS TO PENICILLIN 09/06/2018 LASHELL JEAN MD, Ot I10 ESSENTIAL (PRIMARY) HYPERTENSION 09/06/2018 LASHELL JEAN MD, Ot Q25. 1 COARCTATION OF AORTA 09/06/2018 LASHELL JEAN MD, Ot R07. 9 CHEST PAIN, UNSPECIFIED 09/22/2018 LASHELL JEAN MD, Ot I10 ESSENTIAL (PRIMARY) HYPERTENSION 09/22/2018 LASHELL JEAN MD, Ot Q25. 1 COARCTATION OF AORTA 09/22/2018 LASHELL JEAN MD, Ot R07. 9 CHEST PAIN, UNSPECIFIED Procedures Code Description [place] [address] [facility] H DIAGNOSTIC EVALUATION 01/04/2013 Results Test Result Range Complete blood count (CBC) with automate d white blood cell (WBC) differential - 07/30/17 17:25 Blood leukocytes automated count (number/volume) 12.6 10*3/uL 4.3-11.0 Blood erythrocytes automated count (number/volume) 5.49 10*6/uL 4.35-5.85 Venous blood hemoglobin measurement (mass/volume) 16.1 g/dL 13.3-17.7 Blood hematocrit (volume fraction) 46 % 40-54 Automated erythrocyte mean corpuscular volume 83 [ foz_us] 80-99 Automated erythrocyte mean corpuscular h emoglobin (mass per erythrocyte) 29 pg 25-34 Automated erythrocyte mean corpuscular h emoglobin concentration measurement (mass/volume) 35 g/dL 32-36 Automated erythrocyte distribution width ratio 13. 4 % 10.0- 14.5 Automated blood platelet count (count/volume) 223 10*3/uL 130-400 Automated blood platelet mean volume measurement 10.5 [foz_us] 7.4-10.4 Automated blood neutrophils/100 leukocytes 86 % 42-75 Automated blood lymphocytes/100 leukocytes 5 % 12-44 Blood monocytes/100 leukocytes 9 % 0-12 Automated blood eosinophils/100 leukocytes 0 % 0-10 Automated blood basophils/100 leukocytes 0 % 0-10 Blood neutrophils automated count (number/volume) 10.9 10*3 1.8-7.8 Blood lymphocytes automated count (number/volume) 0.6 10*3 1.0-4.0 Blood monocytes automated count (number/volume) 1. 2 10*3 0.0-1.0 Automated eosinophil count 0.0 10*3/uL 0 .0-0.3 Automated blood basophil count (count/volume) 0.0 10*3/uL 0.0-0.1 Blood manual differential performed dete ction - 07/30/17 17:25 Blood monocytes/100 leukocytes 5 % NRG Manual blood segmented neutrophils/100 leukocytes 88 % NRG Blood band neutrophils/100 leukocytes 0 % NRG Manual blood lymphocytes/100 leukocytes 7 % NRG Manual eosinophils/100 leukocytes in nose 0 % NRG Manual blood basophils/100 leukocytes 0 % NRG Blood erythrocyte morphology finding identification NORMAL NR Comprehensive metabolic panel - 07/30/17 17:25 Serum or plasma sodium measurement (moles/volume) 136 mmol/L 135-145 Serum or plasma potassium measurement (moles/volume) 3.9 mmol/L 3.6-5.0 Serum or plasma chloride measurement (moles/volume) 102 mmol/L 98-107 Carbon dioxide 21 mmol/L 21-32 Serum or plasma anion gap determination (moles/volume) 13 mmol/L 5-14 Serum or plasma urea nitrogen measurement (mass/volume ) 11 mg/dL 7-18 Serum or plasma creatinine measurement (mass/volume) 0.86 mg/dL 0.60-1.30 Serum or plasma urea nitrogen/creatinine mass ratio 13 NRG Serum or plasma creatinine measurement w ith calculation of estimated glomerular filtration rate > NRG Serum or plasma glucose measurement (mass/volume) 114 mg/dL 70-105 Serum or plasma calcium measurement (mass/volume) 10.2 mg/dL 8.5-10.1 Serum or plasma total bilirubin measurement (mass/volu me) 1.7 mg/dL 0.1-1.0 Serum or plasma alkaline phosphatase all surement (enzymatic activity/volume) 111 U/L 40-136 Serum or plasma aspartate aminotransfera se measurement (enzymatic activity/volume) 18 U/L 5-34 Serum or plasma alanine aminotransferase measurement (enzymatic activity/volume) 12 U/L 0-55 Serum or plasma protein measurement (mass/volume) 8.8 g/dL 6.4-8.2 Serum or plasma albumin measurement (mass/volume) 5.1 g/dL 3.2-4.5 Fibrin D-dimer FEU measurement in platel et poor plasma (mass/volume) - 07/30/17 17:25 Fibrin D-dimer FEU measurement in platelet poor plasma (mass/volume) 0.49 ug/mL 0.00-0.49 BNP - 07/05/18 14:04 B TYPE NATRIURETIC PEPTIDE (BNP) 5 pg/mL <100 LIPID PANEL - 07/05/18 14:07 CHOLESTEROL, TOTAL 134 mg/dL <200 HDL CHOLESTEROL 37 mg/dL >40 TRIGLYCERIDES 59 mg/dL <150 LDL-CHOLESTEROL 83 mg/dL (calc) NRG CHOL/HDLC RATIO 3.6 (calc) <5.0 NON HDL CHOLESTEROL 97 mg/dL (calc) <130 CMP - 07/05/18 14:07 GLUCOSE 86 mg/dL 65-99 UREA NITROGEN (BUN) 17 mg/dL 7-25 CREATININE 0.95 mg/dL 0.60-1.35 eGFR NON-AFR. CAMEROONIAN 115 mL/min/1.73m2 > OR = 60 eGFR 133 mL/min/1.73m2 > OR = 60 BUN/CREATININE RATIO NOT APPLICABLE (calc) 6-22 SODIUM 138 mmol/L 135-146 POTASSIUM 4.3 mmol/L 3.5-5.3 CHLORIDE 103 mmol/L 98-110 CARBON DIOXIDE 28 mmol/L 20-32 CALCIUM 9.7 mg/dL 8.6-10.3 PROTEIN, TOTAL 7.6 g/dL 6.1-8.1 ALBUMIN 4.6 g/dL 3.6-5.1 GLOBULIN 3.0 g/dL (calc) 1.9-3.7 ALBUMIN/GLOBULIN RATIO 1.5 (calc) 1.0-2. 5 BILIRUBIN, TOTAL 0.7 mg/dL 0.2-1.2 ALKALINE PHOSPHATASE 86 U/L 40-115 AST 18 U/L 10-40 ALT 10 U/L 9-46 CBC - 07/05/18 14:07 WHITE BLOOD CELL COUNT 7.0 Thousand/uL 3 .8-10.8 RED BLOOD CELL COUNT 5.46 Million/uL 4.2 0-5.80 HEMOGLOBIN 15.9 g/dL 13.2-17.1 HEMATOCRIT 47.0 % 38.5-50.0 MCV 86.1 fL 80.0-100.0 MCH 29.1 pg 27.0-33.0 MCHC 33.8 g/dL 32.0-36.0 RDW 13.3 % 11.0-15.0 PLATELET COUNT 270 Thousand/uL 140-400 MPV 10.5 fL 7.5-12.5 ABSOLUTE NEUTROPHILS 4347 cells/uL 1500- 7800 ABSOLUTE LYMPHOCYTES 2086 cells/uL 850-3 900 ABSOLUTE MONOCYTES 518 cells/uL 200-950 ABSOLUTE EOSINOPHILS 0 cells/uL 15-500 ABSOLUTE BASOPHILS 49 cells/uL 0-200 NEUTROPHILS 62.1 % NRG LYMPHOCYTES 29.8 % NRG MONOCYTES 7.4 % NRG EOSINOPHILS 0.0 % NRG BASOPHILS 0.7 % NRG CRP, CARDIAC - 07/05/18 14:07 HS CRP >10.0 mg/L NRG TSH - 07/05/18 14:07 TSH 1.57 mIU/L 0.40-4.50 Encounters ACCT No. Visit Date/Time Discharge Status Pt. Type Provider Facility Loc./Unit Complaint [id number] 02/15/2013 12:00:00 02/15/2013 23:59: 59 CLS Outpatient FRANDY MEEYR MD [id number] 02/01/2013 09:07:00 02/01/2013 23:59: 59 CLS Outpatient LETITIA REDDY APRN [id number] 02/01/2013 09:07:00 02/01/2013 23:59: 59 CLS Outpatient FRANDY MEYER MD [id number] 01/02/2013 13:53:00 01/02/2013 23:59: 59 CLS Outpatient AROLDO CHAPARRO LCPC [id number] 09/02/2018 13:51:00 019 23:59:59 CLS Outpatient LASHELL JEAN MD [facility] CARD OTHER CHEST PAIN,HTN [id number] 08/23/2018 15:12:00 019 23:59:59 CLS Preadmit TED DAWSON, LASHELL Becker [facility] RAD OTHER CHEST PAIN,HTN [id number] 07/30/2017 17:12:00 018 19:24:00 DIS Emergency BK URIAS APRN [facility] ER CP/HOT AND COLD FLASHES [id number] 02/08/2015 14:13:00 015 15:08:00 DIS Emergency BK URIAS APRN [facility] ER GOLF CART ACCIDENT/NECK PAIN [id number] 09/02/2013 22:38:00 014 23:50:00 DIS Emergency BK URIAS APRN [facility] ER L ARM INJ [id number] 01/12/2013 11:36:00 013 13:55:00 DIS Emergency BK URIAS APRN [facility] ER SORE THROAT [id number] 11/29/2012 23:48:00 013 01:01:00 DIS Emergency TENZIN DAWSON, MATT Matthew [facility] ER ANXIETY [id number] 09/29/2012 01:56:00 013 02:44:00 DIS Emergency YAZMIN DAWSON, MARILYN Morfin [facility] ER NECK CHEST PA IN [id number] 07/28/2011 14:05:00 Document Registration [id number] 04/10/2010 17:39:00 Document Registration [id number] 02/13/2019 17:00:00 02/13/2019 23:59:5 9 CLS Outpatient LARISSA MORRIS APRN [facility] [id number] 07/05/2018 13:40:00 Document Registration
== END 2019-08-15 17:07 | disposition home or self-care (01) ==
LOC: EDUNIT# 16:06 → ER 16:07
DX: B86 Scabies (principal); Z88.0 Allergy status to penicillin
CPT/HCPCS: 99282